=== PATIENT | male | born 1995 | race Two or more races ===

== ENCOUNTER 2019-12-24 19:28 | Emergency (ER) | payer MEDICAID ==
[~2019-12-24] VITALS: Ht 180.3 cm; Wt 115.7 kg
[2019-12-24 19:50] VITALS: BP 132/81
--- NOTE | 2019-12-24 19:50 | NUR ---
ED Nurse Note: Patient walked into ED for c/o severe sore throat and R ear ache since last night. Patient also has fever upon ED triage. He notes muscle aches. Patient is aaox4, breathing is normal and unlabored. NAD.
[2019-12-24] MEDS ORDERED: Acetaminophen 500mg (ES) tab ORAL ONE (20:30)
[2019-12-24] MEDS ORDERED: Augmentin 875mg Tab ORAL ONE (20:30)
[2019-12-24] MEDS ORDERED: AUGMENTIN 875-1 EAC1 ORAL (20:38)
[2019-12-24] MEDS ORDERED: IBUPROFEN600 M1 ORAL (20:38)
[2019-12-24 20:50] VITALS: BP 128/90
--- NOTE | 2019-12-24 20:50 | NUR ---
ER DISCHARGE NOTE: Patient is cleared to be discharged per ERMD, pt is aox4, on room air, with stable vital signs. pt was given dc and prescription instructions, pt was able to verbalize understanding, pt id band removed. pt is able to ambulate with steady gait. pt took all belongings.
--- NOTE | 2019-12-24 23:00 | Emergency Room Report ---
History of Present Illness General Chief Complaint: Sore Throat Source: Patient Present Illness Allergies: Coded Allergies: No Known Allergies (Unverified , 12/24/19) COVID-19 Screening Contact w/high risk pt: No Experienced COVID-19 symptoms?: Yes COVID-19 Testing performed ASIAN STUDIES PROGRAM CHAIR: No Nursing Documentation-[facility] Past Medical History: No Stated History Physical Exam Vital Signs Date Time Temp Pulse Resp B/P (MAP) Pulse Ox O2 Delivery O2 Flow Rate FiO2 12/24/19 19:37 100.9 118 18 132/81 (98) 93 Room Air Medical Decision Making Diagnostic Impression: Primary Impression: Pharyngitis Last Vital Signs Date Time Temp Pulse Resp B/P (MAP) Pulse Ox O2 Delivery O2 Flow Rate FiO2 12/24/19 20:50 99.6 12/24/19 20:50 98 18 128/90 99 Room Air Disposition: HOME, SELF-CARE Condition: Stable Scripts Ibuprofen* (MOTRIN*) 600 Mg Tablet 600 MG ORAL Q8H PRN for FOR PAIN, #30 TAB 0 Refills Prov: Deniz Morel MD 12/24/19 Amoxicillin/Potassium Clav 875-125* (AUGMENTIN 875-125 TABLET*) 1 Each Tablet 1 TAB ORAL TWICE A DAY, #14 TAB Prov: Deniz Morel MD 12/24/19 Referrals: [facility] Patient Instructions: Pharyngitis, [id number] Deniz Morel MD Dec 24, 2019 23:00
== END 2019-12-24 23:10 | disposition home or self-care (01) ==
LOC: EMR 20:14
DX: J02.9 Acute pharyngitis, unspecified (principal)
CPT/HCPCS: 96372; J1100; Z7502; 99283

== ENCOUNTER 2020-06-03 23:06 | Emergency (ER) | payer MEDICAID ==
[~2020-06-03] VITALS: Ht 172.7 cm; Wt 113.4 kg
[~2020-06-03 23:06] MED LIST: AUGMENTIN 875-1 EAC1 ORAL; IBUPROFEN600 M1 ORAL
--- NOTE | 2020-06-03 23:30 | NUR ---
ED Nurse Note: Patient walked into the ED with c/o shoulder pain after a box fell on pts left shoulder. Pt denies LOC. ERMD at bedside. Pt is AAOX4 and ambulatory
[2020-06-03] MEDS ORDERED: Ketorolac 30mg Inj IM ONE (23:45)
[2020-06-03 23:48] VITALS: BP 120/73
--- NOTE | 2020-06-03 23:51 | Emergency Room Report ---
History of Present Illness General Chief Complaint: Shoulder Injury Source: Patient Present Illness HPI Patient is a 24 yo M, denies any significant PMHx who presents to ED co L shoulder pain. Patient states that he dropped a storage box onto his left shoulder at approximately 4:30 PM today. He states that his hand initially felt numb but now feels normal. He complains of pain to his posterior left shoulder. He states he has normal range of motion. He denies any head trauma or any other trauma. He denies any chest pain or shortness of breath. Allergies: Coded Allergies: No Known Allergies (Unverified , 12/24/19) COVID-19 Screening Contact w/high risk pt: No Experienced COVID-19 symptoms?: No COVID-19 Testing performed ACCESS DATABASE DEVELOPER: No Patient History Reviewed Nursing Documentation: PMH: Agreed; PSxH: Agreed Nursing Documentation-PMH Past Medical History: No Stated History Review of Systems All Other Systems: negative except mentioned in HPI Physical Exam Vital Signs Date Time Temp Pulse Resp B/P (MAP) Pulse Ox O2 Delivery O2 Flow Rate FiO2 06/03/20 23:24 97.3 73 20 120/73 (89) 98 Room Air Sp02 EP Interpretation: reviewed, normal General Appearance: no apparent distress, alert, GCS 15, non-toxic Head: normocephalic, atraumatic Eyes: bilateral eye normal inspection, bilateral eye PERRL ENT: hearing grossly normal, normal pharynx, no angioedema, normal voice Neck: full range of motion, supple/symm/no masses Respiratory: chest non-tender, lungs clear, normal breath sounds, no respiratory distress, no accessory muscle use Cardiovascular #1: regular rate, rhythm Gastrointestinal: overweight Rectal: deferred Musculoskeletal: other - Left mid upper trapezius hematoma with superficial abrasions mild tenderness to palpation left shoulder normal range of motion, normal strength and sensation intact Neurologic: motor strength/tone normal, wall taper helper III-XII nml as tested, distal neuro normal, oriented x3, sensory intact Psychiatric: no suicidal/homicidal ideation Skin: no rash Lymphatic: no adenopathy Medical Decision Making Diagnostic Impression: Primary Impression: Shoulder injury Additional Impression: Hematoma ER Course Patient had normal range of motion. Neuro intact. Patient's x-ray demonstrates no acute fractures. Patient given a copy of his x-ray results. Patient given intramuscular Toradol for pain relief. He states his pain is improved. After discussing risks and benefits of further diagnostics, treatment plans, as well as indications for and risks of admission, the patient is agreeable to being discharged home. I have explained that their evaluation and treatment in the emergency department today is an important step towards them achieving better health but that their evaluation today is not intended to replace further evaluation and treatment by a physician in their local clinic. I have explained that while the current findings suggest no immediate life threatening emergency they will require further evaluation and treatment by a physician of their choice in their area. They understand that it will be necessary for them to review the final reports of their ED visit with their clinic physician. We have reviewed indications for return to the Emergency Department. I have explained that additional time may need to pass and/or additional testing as an outpatient may be necessary before a definitive diagnosis can be made. They tell me they are willing to follow up as instructed within the timeframe I recommend. They appear to understand what we discussed. Additionally they understand that if they are unable to be seen by an outpatient physician they are welcome, and in fact should, return to the Emergency Department for a repeat evaluation. The patient is stable at time of discharge. Other X-Ray Diagnostic Results Other X-Ray Diagnostic Results : X-Ray ordered: L shoulder # of Views/Limited Vs Complete: 3 View Indication: Pain EP Interpretation: Yes Interpretation: no dislocation, no soft tissue swelling, no fractures Impression: No acute disease Electronically Signed by: Jane Melendez MD Last Vital Signs Date Time Temp Pulse Resp B/P (MAP) Pulse Ox O2 Delivery O2 Flow Rate FiO2 06/03/20 23:24 97.3 73 20 120/73 (89) 98 Room Air Disposition: HOME, SELF-CARE Condition: Stable Scripts Naproxen* (NAPROXEN*) 500 Mg Tablet 500 MG ORAL TWICE A DAY for 7 Days, TAB Prov: Jane Melendez M.D. 06/04/20 Referrals: NOT CHOSEN [facility]/,REFERRING (PCP) Additional Instructions: The patient was provided with discharge instructions, notified to follow-up with a primary care doctor and or specialist in the next 24-48 hours, and to return to the ED if they have worsening of their symptoms. Please note that this report is being documented using Flipps technology. This can lead to erroneous entry secondary to incorrect interpretation by the dictating instrument. Jane Melendez M.D. Jun 03, 2020 23:51
[2020-06-04] MEDS ORDERED: NAPROXEN500 M2 ORAL
[2020-06-04 00:10] VITALS: BP 120/73
--- NOTE | 2020-06-04 14:02 | Diagnostic Imaging Report ---
Indication: Left shoulder pain Technique: 3 views of the left shoulder Comparison: none Findings: No acute fracture. No dislocation. The joint spaces are preserved. Impression: Negative
== END 2020-06-04 00:10 | disposition home or self-care (01) ==
LOC: EMR 23:20
DX: S40.012A Contusion of left shoulder, initial encounter (principal); W22.8XXA Striking against or struck by other objects, initial encounter; Y93.89 Activity, other specified; Y92.9 Unspecified place or not applicable
CPT/HCPCS: 73020; 96372; J1885; Z7502; 99283

== ENCOUNTER 2020-06-10 14:37 | Inpatient (IN) | payer MEDICAID ==
[~2020-06-10] VITALS: Ht 177.8 cm; Wt 119.3 kg
[~2020-06-10 14:37] MED LIST changes: +NAPROXEN500 M2 ORAL
[2020-06-10] MEDS ORDERED: Ketorolac 30mg Inj IV ONE (15:30)
[2020-06-10 15:47] LABS: HEMOGLOBIN 16.6 G/DL (14.2-18.0); MEAN CORPUSCULAR VOLUME 86 FL (80-99); PLATELET COUNT 358 K/UL (150-450); RED BLOOD COUNT 6.42 M/UL (4.70-6.10)
[2020-06-10 15:50] LABS: WHITE BLOOD COUNT 22.9 K/UL (4.8-10.8)
[2020-06-10 15:55] LABS: ALANINE AMINOTRANSFERASE 108 U/L (12-78); ALBUMIN 4.7 G/DL (3.4-5.0); ALBUMIN/GLOBULIN RATIO 1.2 (1.0-2.7); ALKALINE PHOSPHATASE 82 U/L (46-116); ANION GAP 10 mmol/L (5-15); ASPARTATE AMINO TRANSFERASE 56 U/L (15-37); BILIRUBIN,TOTAL 1.4 MG/DL (0.2-1.0); BLOOD UREA NITROGEN 15 mg/dL (7-18); CALCIUM 9.8 MG/DL (8.5-10.1); CARBON DIOXIDE 27 MMOL/L (21-32); CHLORIDE 104 MMOL/L (98-107); CREATININE 0.9 MG/DL (0.55-1.30); POTASSIUM 4.6 MMOL/L (3.5-5.1); SODIUM 141 MMOL/L (136-145)
[2020-06-10 15:59] LABS: BILIRUBIN,DIRECT 0.2 MG/DL (0.0-0.3)
[2020-06-10] MEDS ORDERED: Piperacillin/Tazobactam 3.375 GM in NS 110 ML IVPB ONE (16:00)
--- NOTE | 2020-06-10 16:15 | Emergency Room Report ---
History of Present Illness General Chief Complaint: Abdominal Pain Source: Patient Present Illness HPI 24-year-old male with no significant past medical history other than gastritis here complaining of sudden onset left upper quadrant abdominal pain with flatulence and constipation that started earlier this morning. Patient had a bowel movement prior to coming to ED however reported that it was really hard f or him to defecate. Denies any blood in stool. Patient reports that he forced himself to vomit a couple times. Has been feeling nauseated. Denies any blood in vomit. Denies fever and chills, cough or congestion, all other URI symptoms. Denies urinary symptoms. Reports that he smokes marijuana daily basis. Denies any alcohol intake or tobacco smoke. Denies other drug use. Denies any abdominal surgical history. Reports that he had a lot of greasy food last night. Has not taken medication for symptom relief. Pain is worse when sitting and laying down and feels better when in the position. Denies any heavy lifting. Allergies: Coded Allergies: No Known Allergies (Unverified , 12/24/19) COVID-19 Screening Contact w/high risk pt: No Experienced COVID-19 symptoms?: No COVID-19 Testing performed DATA REPORT ANALYST: Yes COVID-19 Screening: Negative COVID-19 COVID-19 Testing Source: clinic Patient History Past Medical History: see triage record Past Surgical History: none Pertinent Family History: none Immunizations: UTD Reviewed Nursing Documentation: PMH: Agreed; PSxH: Agreed Nursing Documentation-PMH Past Medical History: No Stated History Review of Systems All Other Systems: negative except mentioned in HPI Physical Exam Vital Signs Date Time Temp Pulse Resp B/P (MAP) Pulse Ox O2 Delivery O2 Flow Rate FiO2 06/10/20 15:00 98.2 77 20 133/80 (97) 97 Room Air Sp02 EP Interpretation: reviewed, normal General Appearance: alert, mild distress Head: normocephalic, atraumatic Eyes: bilateral eye normal inspection, bilateral eye PERRL ENT: normal pharynx Neck: supple Respiratory: no respiratory distress, no retraction, no accessory muscle use Cardiovascular #1: regular rate, rhythm, no edema, no gallop, no murmur Gastrointestinal: no organomegaly, no peritonitis, no bruit, no guarding, no hernia, no pulsatile mass, no rebound, other - Negative McBurney's, negative Reed's, negative Rovsing's Rectal: deferred Genitourinary: no CVA tenderness Musculoskeletal: back normal Neurologic: alert, motor strength/tone normal, oriented x3, sensory intact, responsive, speech normal Psychiatric: judgement/insight normal, memory normal, mood/affect normal, no suicidal/homicidal ideation Skin: no rash Lymphatic: no adenopathy Medical Decision Making PA Attestation All my diagnosis and treatment plans were reviewed ad discussed with my supervising physician Dr. Wagoner Diagnostic Impression: Primary Impression: Elevated white blood cell count Additional Impressions: Abdominal pain Appendicitis ER Course 24-year-old male with no significant past medical history other than gastritis here complaining of sudden onset left upper quadrant abdominal pain with flatulence and constipation that started earlier this morning. Patient had a bowel movement prior to coming to ED however reported that it was really hard for him to defecate. Denies any blood in stool. Patient reports that he forced himself to vomit a couple times. Has been feeling nauseated. Denies any blood in vomit. Denies fever and chills, cough or congestion, all other URI symptoms. Denies urinary symptoms. Reports that he smokes marijuana daily basis. Denies any alcohol intake or tobacco smoke. Denies other drug use. Denies any abdominal surgical history. Reports that he had a lot of greasy food last night. Has not taken medication for symptom relief. Pain is worse when sitting and laying down and feels better when in the position. Denies any heavy lifting. Ddx considered but are not limited to: appendicitis, cholecystis, gastritis, gastroenteritis, UTI, pyelonephritis, SBO, diverticulitis, pancreatitis, infl uenza with GI manifestation, HI, Vital signs: are WNL, pt. is afebrile H&PE are most consistent with: Elevated white blood cells, abdominal pain, possible early appendicitis ORDERS: abdominal CT, abdominal pain set, sepsis work-up ED INTERVENTIONS: NS bolus, Zosyn, Pepcid, Zofran, Toradol Patient was admitted with diagnosis of abdominal pain, elevated white count to Dr. Flood under supervision of : Ciaran Zafar was also consulted on this case due to the radiologist finding of early appendicitis pt stable at time of admission CT/MRI/US Diagnostic Results CT/MRI/US Diagnostic Results : Imaging Test Ordered: CT abdomen pelvis with contrast Impression CT dose: Total DLP 821.2 mGycm; CTDI vol 14.3 mGy Comparison: None Findings: Mild dependent atelectasis noted in the lung bases. No pleural effusion or pneumothorax is seen. Partially imaged heart is normal in size. Hepatic contour is smooth. No focal hepatic mass lesion noted on the single phase exam. Hepatic veins and portal veins are patent. There are no CT evident gallstones or pericholecystic inflammatory changes. No biliary ductal dilatation. Spleen, adrenal glands and pancreas unremarkable. No discrete peripancreatic inflammatory changes or fluid collections. Pancreatic enhancement is uniform. Kidneys enhance symmetrically. No urinary tract stone, hydronephrosis or perinephric stranding. Bladder is unremarkable for degree of underdistention. Prostate is not enlarged. There is no free intraperitoneal air or fluid. There is no evidence of small bowel obstruction. The appendix measures 9-10 mm in diameter. Some air is noted within the lumen of the appendix. Questionable subtle early inflammatory changes noted adjacent to the base of the appendix. There is some prominent periappendiceal lymph nodes. Abdominal aorta is normal in caliber. No acute osseous abnormality. IMPRESSION: Appendiceal and periappendiceal that are equivocal for possible early appendicitis. Please correlate clinically. Last Vital Signs Date Time Temp Pulse Resp B/P (MAP) Pulse Ox O2 Delivery O2 Flow Rate FiO2 06/10/20 15:00 98.2 77 20 133/80 (97) 97 Room Air Disposition: ADMITTED INPATIENT Condition: Serious Referrals: [facility],REFERRING (PCP) Divya Carver Jun 10, 2020 16:15
[2020-06-10 16:38] LABS: APPEARANCE,URINE CLEAR; BILIRUBIN, URINE NEGATIVE (NEGATIVE); COLOR,URINE PALE YELLOW; GLUCOSE, URINE (UA) NEGATIVE (NEGATIVE); KETONES,URINE NEGATIVE (NEGATIVE); LEUKOCYTE ESTERASE ,URINE NEGATIVE (NEGATIVE); NITRITE,URINE NEGATIVE (NEGATIVE); PH,URINE 6.5 (4.5-8.0); PROTEIN,URINE NEGATIVE (NEGATIVE); UROBILINOGEN,URINE NORMAL MG/DL (0.0-1.0)
--- NOTE | 2020-06-10 17:28 | Diagnostic Imaging Report ---
Indication: Abnormal pain Technique: CT of the abdomen and pelvis utilizing automated exposure control with intravenous contrast. Venous scanning performed. Axial, sagittal and coronal reformats presented. CT dose: Total DLP 821.2 mGycm; CTDI vol 14.3 mGy Comparison: None Findings: Mild dependent atelectasis noted in the lung bases. No pleural effusion or pneumothorax is seen. Partially imaged heart is normal in size. Hepatic contour is smooth. No focal hepatic mass lesion noted on the single phase exam. Hepatic veins and portal veins are patent. There are no CT evident gallstones or pericholecystic inflammatory changes. No biliary ductal dilatation. Spleen, adrenal glands and pancreas unremarkable. No discrete peripancreatic inflammatory changes or fluid collections. Pancreatic enhancement is uniform. Kidneys enhance symmetrically. No urinary tract stone, hydronephrosis or perinephric stranding. Bladder is unremarkable for degree of underdistention. Prostate is not enlarged. There is no free intraperitoneal air or fluid. There is no evidence of small bowel obstruction. The appendix measures 9-10 mm in diameter. Some air is noted within the lumen of the appendix. Questionable subtle early inflammatory changes noted adjacent to the base of the appendix. There is some prominent periappendiceal lymph nodes. Abdominal aorta is normal in caliber. No acute osseous abnormality. IMPRESSION: Appendiceal and periappendiceal that are equivocal for possible early appendicitis. Please correlate clinically. The CT scanner at [facility] is accredited by the [employer] and the scans are performed using protocols designed to limit radiation exposure to as low as reasonably achievable to attain images of sufficient resolution adequate for diagnostic evaluation.
[2020-06-10 21:35] VITALS: BP 140/82
[2020-06-10] MEDS ORDERED: Morphine Sulfate 4mg/ml Inj (IV USE ONLY) IVP ONE (21:45)
--- NOTE | 2020-06-10 22:10 | NUR ---
NURSE NOTES: Patient arrived on unit A&Ox4, ambulatory with a steady gait. Pt was oriented to room and acknowledged that he would call for nurse if he has any needs. Call light within reach, side rails up x2, bed locked and in lowest position. Awaiting for admission orders. Addendum: 06/10/20 at 2221 by Gabe Lynn RN Vital signs: Temp: 98.0 HR:73 RR:18 O2:97 BP: 140/89
[2020-06-11] VITALS (13 sets, daily range): BP systolic 115–140; BP diastolic 56–89
--- NOTE | 2020-06-11 00:10 | NUR ---
NURSE NOTES: Received admission orders, entered and carried out.
[2020-06-11] MEDS ORDERED: Morphine Sulfate 4mg/ml Inj (IV USE ONLY) IVP PRN (00:15)
[2020-06-11] MEDS: D5NS 1,000 ML IV SCH ×2 (00:37→10:15)
[2020-06-11] MEDS: Morphine Sulfate 2mg/ml Inj(IV/IM USE ONLY) IVP PRN ×2 (06:28→11:15)
--- NOTE | 2020-06-11 07:10 | NUR ---
NURSE HAND-OFF: Important Events on Shift: Admitted from ER, admission orders carried out, abd pain in control Patient Status: sleeping Diet: NPO Pending Orders: Pending Results/Labs: Pending MD notification: Latest Vital Signs: Temperature 98.4 , Pulse 75 , B/P 123 /83 , Respiratory Rate 18 , O2 SAT 97 , Room Air, O2 Flow Rate . Vital Sign Comment: VSS Latest [place] Fall Score: 20 Fall Risk: Low Risk Safety Measures: Call light Within Reach, Bed Alarm , Side Rails Side Rails x2, Bed position Low and Locked. Fall Precautions: Patient Fall Education Report given to RODRIGUEZ Lees.
--- NOTE | 2020-06-11 08:01 | NUR ---
NURSE NOTES: Patient awake and alert and oriented.IV fluids infusing as ordered.Patient NPO as ordered.Call light within reach.
[2020-06-11 08:49] LABS: BASOPHILS % (AUTO) 0.7 % (0.0-2.0); EOSINOPHILS % (AUTO) 1.4 % (0.0-3.0); HEMATOCRIT 46.2 % (42.0-52.0); LYMPHOCYTES % (AUTO) 28.3 % (20.0-45.0); MEAN CORPUSCULAR VOLUME 85 FL (80-99); MONOCYTES % (AUTO) 5.9 % (1.0-10.0); NEUTROPHILS % (AUTO) 63.6 % (45.0-75.0); PLATELET COUNT 298 K/UL (150-450); RED BLOOD COUNT 5.43 M/UL (4.70-6.10); RED CELL DISTRIBUTION WIDTH 12.7 % (11.6-14.8); WHITE BLOOD COUNT 13.4 K/UL (4.8-10.8)
[2020-06-11] MEDS: Piperacillin/Tazobactam 3.375 GM in NS 110 ML IVPB SCH ×3 (09:33→21:57)
--- NOTE | 2020-06-11 09:59 | History and Physical Report ---
DATE OF ADMISSION: 06/10/2020 REASON FOR ADMISSION: Abdominal pain. HISTORY OF PRESENT ILLNESS: A 24-year-old male with no past medical history, complains of sudden onset of left upper quadrant abdominal pain. The patient with positive bowel movements. No hematochezia. No hematemesis. The patient was seen and evaluated in the emergency room. The patient underwent a scan of the abdomen, which showed possible early appendicitis. The patient is now being admitted for possibly the above. The patient otherwise is medically stable. PAST MEDICAL HISTORY: Negative. MEDICATIONS: Negative. SOCIAL HISTORY: Otherwise reviewed. PHYSICAL EXAMINATION: GENERAL: A well-developed male, in no significant distress. VITAL SIGNS: Stable. LUNGS: Clear and symmetric. CARDIAC: S1, S2. Regular rate and rhythm. ABDOMEN: Soft, but noted tenderness in the right lower and upper quadrant. EXTREMITIES: No cyanosis or clubbing. No edema. LABORATORY DATA: Reviewed. White count elevated at 22.9, hematocrit 55. Chemistries otherwise normal with the exception of liver enzymes which were slightly elevated. IMPRESSION: Possible appendicitis by imaging, elevated liver enzymes, leukocytosis, possible sepsis. RECOMMENDATION: 1. NPO. 2. Pain control. 3. Maintain IV Zosyn. 4. Surgical evaluation to follow and ID if needed. 5. We will reassess for further changes and recheck labs in the a.m. Redd Ledezma M.D. DR: RODERICK JOB#: [id number] CC:
--- NOTE | 2020-06-11 12:10 | Pre-Procedure Note/Attestation ---
Pre-Procedure Note/Attestation Complete Prior to Procedure Procedure Narrative: Laparoscopic appendectomy Indications for Procedure Pre-Operative Diagnosis: Abdominal pain acute appendicitis Attestation I attest that I discussed the nature of the procedure; its benefits; risks and complications; and alternatives (and the risks and benefits of such alternatives), prior to the procedure, with the patient (or the patient's legal renewals representative). I attest that, if there was a reasonable possibility of needing a blood transfusion, the patient (or the patient's legal renewals representative) was given the [facility] standardized written summary, pursuant to the [place] Van[place] Blood Safety Act ([place] Health and Safety Code # 1645, as amended). I attest that I re-evaluated the patient just prior to the surgery and that there has been no change in the patient's H&P, except as documented below: Diallo Zafar Jun 11, 2020 12:10
--- NOTE | 2020-06-11 12:10 | Consultation ---
History of Present Illness General Date patient seen: Jun 11, 2020 Reason for Hospitalization: Abdominal Pain Present Illness HPI This is a very pleasant 24-year-old otherwise healthy male that presented to the emergency department [facility] complaining of abdominal pain. Patient states that he was doing well and began to develop some left-sided abdominal pain thought he was constipated went to the bathroom but persistently continued to have the pain. As the day went about pain persistent if not worsening and came to emergency room for evaluation at which time identified to have leukocytosis complain of left-sided abdominal pain and a CT equivocal for appendicitis. Surgery called to evaluate assist with care patient admitted chart reviewed patient examined. patient states he has intermittent nausea had one episode of emesis yesterday. States that the pain is still present and only improved after given narcotic pain medication. Cramping pain 8 out of 10 at max currently 4 out of 10 after recent pain medication Allergies: Coded Allergies: No Known Allergies (Unverified , 12/24/19) COVID-19 Screening Contact w/high risk pt: No Experienced COVID-19 symptoms?: No Medication History Scheduled Amoxicillin/Potassium Clav 875-125* (Augmentin 875-125 Tablet*), 1 TAB ORAL TWICE A DAY Naproxen* (Naproxen*), 500 MG ORAL TWICE A DAY Scheduled PRN Ibuprofen* (Motrin*), 600 MG ORAL Q8H PRN for FOR PAIN Patient History History Provided By: Patient, Medical Record, PMD Healthcare decision maker N Resuscitation status Advanced Directive on File Past Medical/Surgical History Past Medical/Surgical History: (1) Pharyngitis (2) Shoulder injury (3) Hematoma (4) Appendicitis (5) Abdominal pain (6) Elevated white blood cell count Review of Systems Review of Symptoms General ROS: no weight loss or fever Psychological ROS: no depression or mood changes, no memory loss Ophthalmic ROS: no visual changes or eye irritation ENT ROS: no nasal congestion, hearing loss, dizziness Allergy and Immunology ROS: no allergic symptoms or urticaria Hematological and Lymphatic ROS: no swollen glands, unusual bleeding or bruising Endocrine ROS: no polyuria, polydipsia, weight changes, temperature intolerance Respiratory ROS: no cough, shortness of breath, or wheezing Cardiovascular ROS: no chest pain or dyspnea on exertion Gastrointestinal ROS: + abdominal pain, bright red blood in stool. Musculoskeletal ROS: no myalgias or arthralgias Neurological ROS: no TIA or stroke symptoms Dermatological ROS: no new or changing skin lesions, rashes or pruritis Physical Exam Physical Exam General appearance: alert, cooperative, no distress, appears stated age Head: Normocephalic, without obvious abnormality, atraumatic Eyes: conjunctivae/corneas clear. PERRL, EOM's intact. Fundi benign Throat: Lips, mucosa, and tongue normal. Teeth and gums normal Neck: supple, symmetrical, trachea midline, no adenopathy, thyroid: not enlarged, symmetric, no tenderness/mass/nodules, no carotid bruit and no JVD Lungs: clear to auscultation bilaterally Heart: regular rate and rhythm, S1, S2 normal, no murmur, click, rub or gallop Abdomen: soft, generalized discomfort but right lower quadrant-tender with rebound and guarding. Bowel sounds normal. No masses, no organomegaly Extremities: extremities normal, atraumatic, no cyanosis or edema Pulses: 2+ and symmetric Skin: Skin color, texture, turgor normal. No rashes or lesions Neurologic: Grossly normal Last 24 Hour Vital Signs Date Time Temp Pulse Resp B/P (MAP) Pulse Ox O2 Delivery O2 Flow Rate FiO2 06/11/20 09:00 Room Air 06/11/20 08:00 97.7 71 20 131/76 (94) 96 06/11/20 04:00 98.4 75 18 123/83 (96) 97 06/11/20 00:00 98.0 73 18 140/89 (106) 97 06/10/20 22:54 Room Air 06/10/20 21:44 98.2 18 140/82 97 Room Air 06/10/20 21:35 18 140/82 Room Air 06/10/20 19:13 Room Air 06/10/20 15:00 98.2 77 20 133/80 (97) 97 Room Air Intake and Output 06/10/20 06/11/20 19:00 07:00 # Voids 4 # Bowel Movements 1 Laboratory Tests Test 06/10/20 15:16 06/10/20 16:25 06/11/20 08:30 White Blood Count 22.9 K/UL (4.8-10.8) *H 13.4 K/UL (4.8-10.8) H Red Blood Count 6.42 M/UL (4.70-6.10) H 5.43 M/UL (4.70-6.10) Hemoglobin 16.6 G/DL (14.2-18.0) 16.0 G/DL (14.2-18.0) Hematocrit 55.0 % (42.0-52.0) H 46.2 % (42.0-52.0) Mean Corpuscular Volume 86 FL (80-99) 85 FL (80-99) Mean Corpuscular Hemoglobin 25.8 PG (27.0-31.0) L 29.4 PG (27.0-31.0) Mean Corpuscular Hemoglobin Concent 30.1 G/DL (32.0-36.0) L 34.5 G/DL (32.0-36.0) Red Cell Distribution Width 14.0 % (11.6-14.8) 12.7 % (11.6-14.8) Platelet Count 358 K/UL (150-450) 298 K/UL (150-450) Mean Platelet Volume 8.5 FL (6.5-10.1) 8.0 FL (6.5-10.1) Neutrophils (%) (Auto) % (45.0-75.0) 63.6 % (45.0-75.0) Lymphocytes (%) (Auto) % (20.0-45.0) 28.3 % (20.0-45.0) Monocytes (%) (Auto) % (1.0-10.0) 5.9 % (1.0-10.0) Eosinophils (%) (Auto) % (0.0-3.0) 1.4 % (0.0-3.0) Basophils (%) (Auto) % (0.0-2.0) 0.7 % (0.0-2.0) Differential Total Cells Counted 100 Neutrophils % (Manual) 91 % (45-75) H Lymphocytes % (Manual) 6 % (20-45) L Monocytes % (Manual) 3 % (1-10) Eosinophils % (Manual) 0 % (0-3) Basophils % (Manual) 0 % (0-2) Band Neutrophils 0 % (0-8) Platelet Estimate Adequate Platelet Morphology Normal Red Blood Cell Morphology Normal Sodium Level 141 MMOL/L (136-145) Potassium Level 4.6 MMOL/L (3.5-5.1) Chloride Level 104 MMOL/L (98-107) Carbon Dioxide Level 27 MMOL/L (21-32) Anion Gap 10 mmol/L (5-15) Blood Urea Nitrogen 15 mg/dL (7-18) Creatinine 0.9 MG/DL (0.55-1.30) Estimat Glomerular Filtration Rate > 60 mL/min (>60) Glucose Level 125 MG/DL (74-106) H Calcium Level 9.8 MG/DL (8.5-10.1) Total Bilirubin 1.4 MG/DL (0.2-1.0) H Direct Bilirubin 0.2 MG/DL (0.0-0.3) Aspartate Amino Transf (AST/SGOT) 56 U/L (15-37) H Alanine Aminotransferase (ALT/SGPT) 108 U/L (12-78) H Alkaline Phosphatase 82 U/L (46-116) Total Protein 8.5 G/DL (6.4-8.2) H Albumin 4.7 G/DL (3.4-5.0) Globulin 3.8 g/dL Albumin/Globulin Ratio 1.2 (1.0-2.7) Lipase 97 U/L (73-393) Urine Color Pale yellow Urine Appearance Clear Urine pH 6.5 (4.5-8.0) Urine Specific Howard 1.010 (1.005-1.035) Urine Protein Negative (NEGATIVE) Urine Glucose (UA) Negative (NEGATIVE) Urine Ketones Negative (NEGATIVE) Urine Blood Negative (NEGATIVE) Urine Nitrite Negative (NEGATIVE) Urine Bilirubin Negative (NEGATIVE) Urine Urobilinogen Normal MG/DL (0.0-1.0) Urine Leukocyte Esterase Negative (NEGATIVE) Urine Opiates Screen Negative (NEGATIVE) Urine Barbiturates Screen Negative (NEGATIVE) Phencyclidine (PCP) Screen Negative (NEGATIVE) Urine Amphetamines Screen Negative (NEGATIVE) Urine Benzodiazepines Screen Negative (NEGATIVE) Urine Cocaine Screen Negative (NEGATIVE) Urine Marijuana (THC) Screen Negative (NEGATIVE) Microbiology Date/Time Source Procedure Growth Status 06/10/20 17:40 Nasopharynx SARS-CoV-2 Antigen (Rapid)(HA) - Final Complete Height (Feet): 5 Height (Inches): 10.00 Weight (Pounds): 263 Medications Current Medications Medications (Trade) Dose Ordered Sig/Ambrocio Route PRN Reason Start Time Stop Time Status Last Admin Dose Admin Dextrose/Sodium Chloride 1,000 ml @ 100 mls/hr Q10H IV 06/11/20 00:15 07/11/20 00:14 06/11/20 00:37 Morphine Sulfate (Morphine Sulfate) 2 mg Q3HR PRN IVP For Pain 06/11/20 00:15 06/18/20 00:14 06/11/20 11:15 Morphine Sulfate (Morphine Sulfate) 4 mg Q3HR PRN IVP For Pain 06/11/20 00:15 06/18/20 00:14 Ondansetron HCl (Zofran) 4 mg Q6H PRN IVP Nausea & Vomiting 06/11/20 00:15 07/11/20 00:14 Piperacillin Sod/ Tazobactam Sod 3.375 gm/Sodium Chloride 110 ml @ 27.5 mls/hr EVERY 8 HOURS IVPB 06/11/20 09:30 06/16/20 09:29 06/11/20 09:33 Assessment/Plan Problem List: (1) Appendicitis Assessment & Plan: This is a 24-year-old male with likely acute appendicitis. Though patient's clinical presentation history questionable appendicitis or with atypical presentation on examination he does have focal tenderness in the right lower quadrant only discomfort in the remainder the abdomen. He has rebound and guarding the right lower quadrant. He is more peritonitis gone to the right lower quadrant is when he is I stand up and jump he points directly the right lower quadrant is where the pain radiates from. CT reviewed dilated appendix noted notes severe inflammation agree with likely equivocal but given clinical examination though history is not consistent likely atypical presentation of acute appendicitis. I do long discussion with the patient at the bedside. I explained to him the possibility of a negative laparoscopy, laparoscopic appendectomy, medical treatment with repeat abdominal examinations and antibiotics. After explained the risk benefits and alternatives patient expressed that he would be more comfortable with proceeding with diagnostic laparoscopy and appendectomy and more of a definitive answer as to the etiology of his pain. Consent obtained. Plan for OR today. ICD Codes: K37 - Unspecified appendicitis SNOMED: 15125766, 527445228 (2) Shoulder injury ICD Codes: S49.90XA - Unspecified injury of shoulder and upper arm, unspecified arm, initial encounter SNOMED: 973378003 (3) Abdominal pain ICD Codes: R10.9 - Unspecified abdominal pain SNOMED: 10823493, 630749320 (4) Pharyngitis ICD Codes: J02.9 - Acute pharyngitis, unspecified SNOMED: 504390239 (5) Hematoma ICD Codes: T14.8XXA - Other injury of unspecified body region, initial encounter SNOMED: 241631935 (6) Elevated white blood cell count ICD Codes: D72.829 - Elevated white blood cell count, unspecified SNOMED: 398008999, 438486987 Diallo Zafar Jun 11, 2020 12:10
[2020-06-11] MEDS ORDERED: Rocuronium Bromide 50mg/5ml Inj IV ONE (12:14)
[2020-06-11] MEDS ORDERED: Succinylcholine 20mg/ml 10ml vial ONE (12:15)
[2020-06-11] MEDS ORDERED: fentaNYL 100 mcg/2 mL IV ONE (12:21)
[2020-06-11] MEDS ORDERED: Midazolam 2mg/2ml Inj ONE (12:21)
[2020-06-11] MEDS ORDERED: Lidocaine 1% MPF 10mg/ml 5ml ONE (12:21)
[2020-06-11] MEDS ORDERED: Bupivacaine w/Epi 0.25% 50ml vial INJ ONE (12:27)
[2020-06-11] MEDS ORDERED: Bacitracin 50000 Units Vial ONE (12:27)
[2020-06-11] MEDS ORDERED: NeoSporin Gu Irrig 1ml Amp IRRIG ONE (12:27)
--- NOTE | 2020-06-11 12:40 | NUR ---
NURSE NOTES: Patient to OR for surgery.Consent was signed.
--- NOTE | 2020-06-11 12:40 | Anethesia Preoperative Eval ---
Anesthesia Pre-op PMH/ROS General Date of Evaluation: Jun 11, 2020 Time of Evaluation: 12:37 Anesthesiologist: Brandi ASA Score: ASA 2 Mallampati Score Class I : Soft palate, uvula, fauces, pillars visible Class II: Soft palate, uvula, fauces visible Class III: Soft palate, base of uvula visible Class IV: Only hard plate visible Mallampati Classification: Class II Surgeon: Jesse Diagnosis: Acute appendicitis Surgical Procedure: Appendectomy Anesthesia History: none Family History: no anesthesia problems Allergies: Coded Allergies: No Known Allergies (Unverified , 12/24/19) Medications: see eMAR Patient NPO?: Yes Past Medical History Cardiovascular: Denies: HTN, CAD, SD, valve dz, arrhythmia, other Pulmonary: Denies: asthma, COPD, JASWIND[place], other Gastrointestinal/Genitourinary: Reports: GERD; Denies: CRI, ESRD, other Neurologic/Psychiatric: Denies: dementia, CVA, depression/anxiety, TIA, other Endocrine: Denies: DM, hypothyroidism, steroids, other HEENT: Denies: cataract (L), cataract (R), glaucoma, [place] (L), [place] (R), other Hematology/Immune: Denies: anemia, DVT, bleeding disorder, other Musculoskeletal/Integumentary: Denies: OA, RA, DJD, DDD, edema, other Other: obesity PMH Narrative: as above admitted for acute onset abdominal pain PSxH Narrative: none Anesthesia Pre-op Phys. Exam Physician Exam Last Vital Signs Date Time Temp Pulse Resp B/P (MAP) Pulse Ox O2 Delivery O2 Flow Rate FiO2 06/11/20 09:00 Room Air 06/11/20 08:00 97.7 71 20 131/76 (94) 96 Constitutional: NAD Neurologic: CN 2-12 intact Cardiovascular: RRR, no M/R/G Respiratory: CTA Gastrointestinal: other - some tenderness Airway Exam Mallampati Score: Class II MO: full Neck: flexible ROM: full Teeth: intact Dentures: no upper, no lower Anesthesia Pre-op A/P Labs Hematology Test 06/10/20 15:16 06/11/20 08:30 White Blood Count 22.9 K/UL (4.8-10.8) *H 13.4 K/UL (4.8-10.8) H Red Blood Count 6.42 M/UL (4.70-6.10) H 5.43 M/UL (4.70-6.10) Hemoglobin 16.6 G/DL (14.2-18.0) 16.0 G/DL (14.2-18.0) Hematocrit 55.0 % (42.0-52.0) H 46.2 % (42.0-52.0) Mean Corpuscular Volume 86 FL (80-99) 85 FL (80-99) Mean Corpuscular Hemoglobin 25.8 PG (27.0-31.0) L 29.4 PG (27.0-31.0) Mean Corpuscular Hemoglobin Concent 30.1 G/DL (32.0-36.0) L 34.5 G/DL (32.0-36.0) Red Cell Distribution Width 14.0 % (11.6-14.8) 12.7 % (11.6-14.8) Platelet Count 358 K/UL (150-450) 298 K/UL (150-450) Mean Platelet Volume 8.5 FL (6.5-10.1) 8.0 FL (6.5-10.1) Neutrophils (%) (Auto) % (45.0-75.0) 63.6 % (45.0-75.0) Lymphocytes (%) (Auto) % (20.0-45.0) 28.3 % (20.0-45.0) Monocytes (%) (Auto) % (1.0-10.0) 5.9 % (1.0-10.0) Eosinophils (%) (Auto) % (0.0-3.0) 1.4 % (0.0-3.0) Basophils (%) (Auto) % (0.0-2.0) 0.7 % (0.0-2.0) Differential Total Cells Counted 100 Neutrophils % (Manual) 91 % (45-75) H Lymphocytes % (Manual) 6 % (20-45) L Monocytes % (Manual) 3 % (1-10) Eosinophils % (Manual) 0 % (0-3) Basophils % (Manual) 0 % (0-2) Band Neutrophils 0 % (0-8) Platelet Estimate Adequate Platelet Morphology Normal Red Blood Cell Morphology Normal Chemistry Test 06/10/20 15:16 Sodium Level 141 MMOL/L (136-145) Potassium Level 4.6 MMOL/L (3.5-5.1) Chloride Level 104 MMOL/L (98-107) Carbon Dioxide Level 27 MMOL/L (21-32) Anion Gap 10 mmol/L (5-15) Blood Urea Nitrogen 15 mg/dL (7-18) Creatinine 0.9 MG/DL (0.55-1.30) Estimat Glomerular Filtration Rate > 60 mL/min (>60) Glucose Level 125 MG/DL (74-106) H Calcium Level 9.8 MG/DL (8.5-10.1) Total Bilirubin 1.4 MG/DL (0.2-1.0) H Direct Bilirubin 0.2 MG/DL (0.0-0.3) Aspartate Amino Transf (AST/SGOT) 56 U/L (15-37) H Alanine Aminotransferase (ALT/SGPT) 108 U/L (12-78) H Alkaline Phosphatase 82 U/L (46-116) Total Protein 8.5 G/DL (6.4-8.2) H Albumin 4.7 G/DL (3.4-5.0) Globulin 3.8 g/dL Albumin/Globulin Ratio 1.2 (1.0-2.7) Lipase 97 U/L (73-393) Risk Assessment & Plan Assessment: ASA 2 Plan: GA with ETT Status Change Before Surgery: No Pre-Antibiotics Drug: Ancef 2gr Given Within 1 Hr of Incision: Yes Time Given: 13:05 Vu Paz MD Jun 11, 2020 12:40
[2020-06-11] MEDS ORDERED: Sterile Water Irrig 1000ml IRRIG ONE ×2 (13:00)
[2020-06-11] MEDS ORDERED: LR 1000ml ONE (13:00)
[2020-06-11] MEDS ORDERED: NS Irrig 1000ml ONE (13:00)
[2020-06-11] MEDS ORDERED: Morphine Sulfate 10mg/ml Inj ONE (13:24)
[2020-06-11] MEDS ORDERED: Sodium Chloride 10ml vial INJ ONE (13:25)
[2020-06-11] MEDS ORDERED: Neostigmine 1mg/ml 10ml Inj ONE (13:25)
[2020-06-11] MEDS ORDERED: Glycopyrrolate 0.2mg/ml 1ml Vial ONE (13:25)
[2020-06-11] MEDS ORDERED: Ketorolac 30mg Inj ONE (13:27)
[2020-06-11] MEDS ORDERED: Metoclopramide 10mg/2ml Inj IVP PRN (13:30)
[2020-06-11] MEDS ORDERED: Midazolam 2mg/2ml Inj IVP PRN (13:30)
[2020-06-11] MEDS ORDERED: Hydromorphone 0.5mg/0.5ml inj IVP PRN (13:30)
[2020-06-11] MEDS ORDERED: LR 1000ml 1,000 ML IVLG SCH (13:30)
[2020-06-11] MEDS ORDERED: DiphenhydrAMINE 50mg/ml Inj IVP PRN (13:30)
[2020-06-11] MEDS ORDERED: Meperidine 25mg/1ml Inj (FOR RIGORS ONLY) IV PRN (13:30)
[2020-06-11] MEDS ORDERED: Ketorolac 30mg Inj IV PRN ×2 (13:30→14:00)
--- NOTE | 2020-06-11 13:57 | Brief Operative Note ---
Immediate Post Operative Note Operative Note Pre-op Diagnosis: Abdominal pain acute appendicitis Procedure: lap appy Post-op Diagnosis: same as pre-op Surgeon: emily Anesthesiologist: orlando Anesthesia: general, local Specimen: yes Complications: none Condition: stable Fluids: see Estimated Blood Loss: minimal Drains: none Implant(s) used?: No Diallo Zafar Jun 11, 2020 13:57
[2020-06-11] MEDS ORDERED: HYDROcodone/Acetamin 5/325 tab ORAL PRN (14:00)
[2020-06-11] MEDS ORDERED: Morphine Sulfate 2mg/ml Inj(IV/IM USE ONLY) IVP PRN ×2 (14:00)
[2020-06-11] MEDS ORDERED: Milk of Magnesia 30ml Ud ORAL PRN (14:00)
[2020-06-11] MEDS ORDERED: Sennosides 8.6mg tab ORAL PRN (14:00)
--- NOTE | 2020-06-11 14:06 | Immediate Post-Op Evaluation ---
Immediate Post-Op Evalulation Immediate Post-Op Evalulation Procedure: Laparoscopic appendectomy Date of Evaluation: Jun 11, 2020 Time of Evaluation: 14:04 IV Fluids: 800 Blood Products: none Estimated Blood Loss: min Urinary Output: none Blood Pressure Systolic: 115 Blood Pressure Diastolic: 66 Pulse Rate: 74 Respiratory Rate: 20 O2 Sat by Pulse Oximetry: 97 Temperature (Fahrenheit): 97.6 Pain Score (1-10): 1 Nausea: No Vomiting: No Complications none Patient Status: reacts, patent, extubated, none Hydration Status: adequate Vu Paz MD Jun 11, 2020 14:06
--- NOTE | 2020-06-11 15:07 | NUR ---
NURSE NOTES: Received patient from recovery,patient is awake and alert and oriented.IV fluid infusing.Laparoscopic sites x3 noted to abdomen,steri strip and dermabond,clean in place. Will monitor.
--- NOTE | 2020-06-11 15:59 | Operative Note - Dictated ---
DATE OF OPERATION: 06/11/2020 PREOPERATIVE DIAGNOSES: 1. Abdominal pain. 2. Acute appendicitis, early. POSTOPERATIVE DIAGNOSES: 1. Abdominal pain. 2. Acute appendicitis, early. OPERATION PERFORMED: 1. Diagnostic laparoscopy. 2. Laparoscopic appendectomy. ATTENDING SURGEON: Diallo Zafar MD. KELLER MACHINE OPERATOR: None. ANESTHESIOLOGY: Vu Paz MD. ANESTHESIA: General GETA plus local. ESTIMATED BLOOD LOSS: Minimal. IV FLUIDS: Please see anesthesia records. COMPLICATIONS: None. DRAINS: None. COUNTS: Sponge and needle counts correct x2. WOUND CLASSIFICATION: Class 3. SPECIMENS: Appendix. ANTIBIOTICS: The patient is on scheduled IV antibiotics. INDICATIONS FOR PROCEDURE: This is a 24-year-old male who presented to [facility] complaining of abdominal pain. The patient states generalized abdominal pain on the left side. Significant leukocytosis of 23,000. CT with equivocal potential acute appendicitis. Surgery called to evaluate. The patient was seen. The patient has atypical history and equivocal CT scan were evaluated compared to his clinical examination where he had focal peritonitis tenderness in the right lower quadrant with rebound and guarding. The remainder of the abdomen was uncomfortable with right lower quadrant was the area of focal pain. Peritoneal was identified. I had the patient stand and jump and he was directly identified to have pain in the right lower quadrant radiating to the rest of the abdomen. This led to likely appendicitis. Long discussion was had. Risks, benefits, and alternatives including potential of negative laparoscopy, appendectomy or other intraoperative finding require management. Risks, benefits, and alternatives discussed. The patient understood. I spoke with his family and they consented and scheduled for June 11, 2020. OPERATIVE NOTE: The patient was taken to the operating room and placed on the operating table in supine position with left arm tucked. All bony prominences well padded. SCDs placed. Preoperative time-out taken identifying the patient, procedure, operative staff, and surgical staff. General anesthesia was induced and the patient was intubated. The abdomen was clipped, prepped, and draped in standard surgical fashion. An infraumbilical incision was made and carried through subcutaneous tissue and the fascia was elevated and incised. Entry into the abdomen obtained using open Vijaya technique without complication. A 12 mm Vijaya trocar inserted and the abdomen insufflated to 12 to 15 mmHg. Laparoscope was inserted and the abdomen inspected. No injury from initial trocar placement identified. Right upper quadrant, liver, and gallbladder looked otherwise normal. Omentum in the right upper quadrant and left upper quadrant otherwise normal. Left lobe of the liver and stomach otherwise normal. Portions of small intestine and largest intestine could be identified were unremarkable. In the right lower quadrant, serous fluid was identified moving. Secondary trocars were placed under visualization beginning with a 12 mm left lower quadrant followed by 5 mm suprapubic. No injury from second trocar placement identified. Laparoscopic graspers were used. Cecum was identified. Tenia was followed down to the base where the appendix was noted. There was inflammation at the base of the appendix and at the appendix was early acute appendicitis likely. The appendix was mobilized. A window was made between the appendix and mesoappendix. A laparoscopic linear stapler was used and the appendix was divided at the base without complication. In similar fashion, laparoscopic linear stapler was used and the mesoappendix was divided. Bleeding noted from the mesoappendix and laparoscopic clips were used. Hemostasis obtained. Surgicel was left in the wound bed. Pelvic and right lower quadrant were irrigated and suctioned clean. No bleeding was identified, clipped, and staple lines satisfactory, viable and hemostatic. Appendix was placed in endoscopic retrieval bag and removed from the umbilical port site. At this time, we began the conclusion of our procedure. Secondary trocars were removed under direct visualization followed by the umbilical trocar site. Abdomen was desufflated. Umbilical trocar site and left lower quadrant port site fascia reapproximated using [id number] #0 Vicryl sutures. Skin incisions reapproximated with 4-0 Monocryl subcuticular interrupted sutures. Steri-Strips and Dermabond applied. The patient tolerated the procedure well, was extubated and taken to postanesthetic care unit in stable condition. Diallo Zafar M.D. DR: DEVAN JOB#: [id number] CC:
--- NOTE | 2020-06-11 16:14 | NUR ---
INSURANCE [employer]INICALS FAXED TO [employer] [phone]
[2020-06-11] MEDS: Docusate 100mg cap ORAL SCH (17:36)
[2020-06-11] MEDS: Morphine Sulfate 4mg/ml Inj (IV USE ONLY) IVP PRN ×2 (17:37→21:58)
--- NOTE | 2020-06-11 18:00 | NUR ---
NURSE NOTES: Patient able to rest after receiving pain medication and eating dinner.Lap sites x3 with steri strips remains intact,no bleeding noted .Call light within reach..
--- NOTE | 2020-06-11 19:20 | NUR ---
NURSE HAND-OFF: Diogo FRIAS Important Events on Shift:[surgery today for Laparoscopic Appendectomy. Patient Status: stable] Diet: [regular] Pending Orders: [] Pending Results/Labs:[] Pending MD notification:[] Latest Vital Signs: Temperature 97.7 , Pulse 85 , B/P 119 /56 , Respiratory Rate 18 , O2 SAT 94 , Nasal Cannula, O2 Flow Rate 3 . Vital Sign Comment: [] Latest [place] Fall Score: 20 Fall Risk: Low Risk Safety Measures: Call light Within Reach, Bed Alarm , Side Rails Side Rails x2, Bed position Low and Locked. Fall Precautions: Patient Fall Education Report given to [].
--- NOTE | 2020-06-11 19:45 | NUR ---
NURSE NOTES: Received report from Yoana FRIAS. Patient is awake, alert and oriented x4. On NC 2L, breathing is even and unlabored. Complains of abdominal pain. Steri strips on 3 abdominal sites intact and clean. IV right AC intact and patent with no bleeding noted. IVF discontinued per 's order. Bed low and locked. Call light within reach.
[2020-06-12] VITALS (7 sets, daily range): BP systolic 118–137; BP diastolic 70–86
[2020-06-12] MEDS: Morphine Sulfate 4mg/ml Inj (IV USE ONLY) IVP PRN ×2 (03:30→09:05)
[2020-06-12] MEDS: Piperacillin/Tazobactam 3.375 GM in NS 110 ML IVPB SCH ×3 (05:08→21:00)
[2020-06-12 06:28] LABS: BASOPHILS % (AUTO) 0.6 % (0.0-2.0); EOSINOPHILS % (AUTO) 1.2 % (0.0-3.0); HEMATOCRIT 46.3 % (42.0-52.0); HEMOGLOBIN 15.6 G/DL (14.2-18.0); MEAN CORPUSCULAR VOLUME 86 FL (80-99); MONOCYTES % (AUTO) 6.7 % (1.0-10.0); NEUTROPHILS % (AUTO) 70.5 % (45.0-75.0); PLATELET COUNT 290 K/UL (150-450); RED BLOOD COUNT 5.37 M/UL (4.70-6.10); RED CELL DISTRIBUTION WIDTH 12.5 % (11.6-14.8)
[2020-06-12 06:55] LABS: ANION GAP 9 mmol/L (5-15); BLOOD UREA NITROGEN 11 mg/dL (7-18); CALCIUM 9.2 MG/DL (8.5-10.1); CARBON DIOXIDE 28 MMOL/L (21-32); CHLORIDE 104 MMOL/L (98-107); CREATININE 0.9 MG/DL (0.55-1.30); POTASSIUM 3.8 MMOL/L (3.5-5.1); SODIUM 140 MMOL/L (136-145)
--- NOTE | 2020-06-12 07:51 | NUR ---
NURSE HAND-OFF: Important Events on Shift: Pain management Patient Status: Stable Diet: Regular Pending Orders: [] Pending Results/Labs:[] Pending MD notification:[] Latest Vital Signs: Temperature 98.6 , Pulse 77 , B/P 133 /86 , Respiratory Rate 18 , O2 SAT 98 , Nasal Cannula, O2 Flow Rate 3 . Vital Sign Comment: VS stable Latest [place] Fall Score: 20 Fall Risk: Low Risk Safety Measures: Call light Within Reach, Bed Alarm , Side Rails Side Rails x2, Bed position Low and Locked. Fall Precautions: Patient Fall Education Report given to Yoana FRIAS.
--- NOTE | 2020-06-12 08:06 | 48 Hour Post Anesthesia Eval ---
Post Anesthesia Evaluation Procedure: Laparoscopic appendectomy Date of Evaluation: Jun 12, 2020 Time of Evaluation: 08:05 Blood Pressure Systolic: 132 0: 76 Pulse Rate: 74 Respiratory Rate: 20 Temperature (Fahrenheit): 97.8 O2 Sat by Pulse Oximetry: 98 Airway: patent Nausea: No Vomiting: No Pain Intensity: 2 Hydration Status: adequate Cardiopulmonary Status: stable Mental Status/LOC: patient returned to baseline Follow-up Care/Observations: n/a Post-Anesthesia Complications: none Follow-up care needed: N/A Vu Paz MD Jun 12, 2020 08:06
--- NOTE | 2020-06-12 08:18 | NUR ---
NURSE NOTES: Patient awake and alert and oriented,respirations unlabored.Saline lock to the upper right arm in place.3 Lap sites to the abdomen with steri strips remains intact.Patient ate breakfast.Call light within reach.
--- NOTE | 2020-06-12 08:26 | General Progress Note ---
Subjective Allergies: Coded Allergies: No Known Allergies (Unverified , 12/24/19) Subjective care noted postop care noted Objective Last 24 Hour Vital Signs Date Time Temp Pulse Resp B/P (MAP) Pulse Ox O2 Delivery O2 Flow Rate FiO2 06/12/20 08:06 74 20 98 06/12/20 04:00 98.6 77 18 133/86 (102) 98 06/12/20 00:00 98.6 78 18 128/80 (96) 98 06/11/20 21:00 Room Air 06/11/20 20:00 98.9 74 18 130/83 (99) 98 06/11/20 16:00 97.7 85 18 119/56 (77) 94 06/11/20 14:55 98.5 76 20 121/75 96 Nasal Cannula 3 06/11/20 14:45 77 16 120/68 96 Nasal Cannula 3 06/11/20 14:30 76 22 119/80 97 Simple Mask 6 06/11/20 14:20 82 21 128/74 97 Simple Mask 6 06/11/20 14:10 74 20 123/67 97 Simple Mask 6 06/11/20 14:06 74 20 97 06/11/20 14:05 79 19 115/66 94 Simple Mask 6 06/11/20 14:01 97.6 78 24 123/75 93 Simple Mask 6 06/11/20 12:00 97.3 63 20 134/81 (98) 95 06/11/20 09:00 Room Air Intake and Output 06/11/20 06/12/20 19:00 07:00 Intake Total 1990 ml 590 ml Output Total 10 ml 1000 ml Balance 1980 ml -410 ml Intake Oral 240 ml 480 ml IV Total 1750 ml 110 ml Output Urine Total 1000 ml Estimated Blood Loss 10 ml # Voids 3 Laboratory Tests 06/11/20 08:30: White Blood Count 13.4H, Red Blood Count 5.43, Hemoglobin 16.0, Hematocrit 46.2, Mean Corpuscular Volume 85, Mean Corpuscular Hemoglobin 29.4, Mean Corpuscular Hemoglobin Concent 34.5, Red Cell Distribution Width 12.7, Platelet Count 298, Mean Platelet Volume 8.0, Neutrophils (%) (Auto) 63.6, Lymphocytes (%) (Auto) 28.3, Monocytes (%) (Auto) 5.9, Eosinophils (%) (Auto) 1.4, Basophils (%) (Auto) 0.7 06/12/20 05:05: White Blood Count 12.0H, Red Blood Count 5.37, Hemoglobin 15.6, Hematocrit 46.3, Mean Corpuscular Volume 86, Mean Corpuscular Hemoglobin 29.1, Mean Corpuscular Hemoglobin Concent 33.8, Red Cell Distribution Width 12.5, Platelet Count 290, Mean Platelet Volume 7.9, Neutrophils (%) (Auto) 70.5, Lymphocytes (%) (Auto) 21.0, Monocytes (%) (Auto) 6.7, Eosinophils (%) (Auto) 1.2, Basophils (%) (Auto) 0.6, Sodium Level 140, Potassium Level 3.8, Chloride Level 104, Carbon Dioxide Level 28, Anion Gap 9, Blood Urea Nitrogen 11, Creatinine 0.9, Estimat Glomerular Filtration Rate > 60, Glucose Level 104, Calcium Level 9.2 Height (Feet): 5 Height (Inches): 10.00 Weight (Pounds): 263 Objective WDWN NAD clear breath sounds bilaterally without rhonchi or wheeze [id number] without MRG NABS mildly tender no CCE nonfocal Assessment/Plan Assessment/Plan: IMPRESSION: early appendicitis , elevated liver enzymes, leukocytosis, s/p appy PLAN postop care dc planning per surgery pain control stable out of bed impression, plan, and exam edited and reviewed in detail care discussed with Redd Garcia MD Jun 12, 2020 08:26
--- NOTE | 2020-06-12 08:55 | NUR ---
PT EVALUATION NOTE Patient seen for initial evaluation and treatment initiated. Patient presents with pain and impaired functional mobility post-op. Patient requires SBA for bed mobility and SBA/CGA for transfers, no AD. Patient able to ambulate 125 ft with CGA, multiple standing rests, slow gait and guarded. Patient will benefit from skilled inpatient PT intervention to improve level of functional mobility and activity tolerance. Anticipate discharge home with family assistance once medically cleared by MD. No DME needs identified at this time. Addendum: 06/12/20 at 1239 by GRISELDA FRANCIS PT Amended: Links added.
[2020-06-12] MEDS: Docusate 100mg cap ORAL SCH ×2 (09:04→17:57)
--- NOTE | 2020-06-12 10:07 | Surgery Progress Note ---
Surgery Progress Note Subjective Procedure Performed lap appy Additional Comments doing well post op labs better exam better wounds c/d/i rx written f/u given d/c planning Objective Last 24 Hour Vital Signs Date Time Temp Pulse Resp B/P (MAP) Pulse Ox O2 Delivery O2 Flow Rate FiO2 06/12/20 09:15 Room Air 06/12/20 08:06 74 20 98 06/12/20 08:00 98.1 73 18 134/82 (99) 94 06/12/20 04:00 98.6 77 18 133/86 (102) 98 06/12/20 00:00 98.6 78 18 128/80 (96) 98 06/11/20 21:00 Room Air 06/11/20 20:00 98.9 74 18 130/83 (99) 98 06/11/20 16:00 97.7 85 18 119/56 (77) 94 06/11/20 14:55 98.5 76 20 121/75 96 Nasal Cannula 3 06/11/20 14:45 77 16 120/68 96 Nasal Cannula 3 06/11/20 14:30 76 22 119/80 97 Simple Mask 6 06/11/20 14:20 82 21 128/74 97 Simple Mask 6 06/11/20 14:10 74 20 123/67 97 Simple Mask 6 06/11/20 14:06 74 20 97 06/11/20 14:05 79 19 115/66 94 Simple Mask 6 06/11/20 14:01 97.6 78 24 123/75 93 Simple Mask 6 06/11/20 12:00 97.3 63 20 134/81 (98) 95 I&O Intake and Output 06/11/20 06/12/20 19:00 07:00 Intake Total 1990 ml 590 ml Output Total 10 ml 1000 ml Balance 1980 ml -410 ml Intake Oral 240 ml 480 ml IV Total 1750 ml 110 ml Output Urine Total 1000 ml Estimated Blood Loss 10 ml # Voids 3 Laboratory Tests Test 06/12/20 05:05 White Blood Count 12.0 K/UL (4.8-10.8) H Red Blood Count 5.37 M/UL (4.70-6.10) Hemoglobin 15.6 G/DL (14.2-18.0) Hematocrit 46.3 % (42.0-52.0) Mean Corpuscular Volume 86 FL (80-99) Mean Corpuscular Hemoglobin 29.1 PG (27.0-31.0) Mean Corpuscular Hemoglobin Concent 33.8 G/DL (32.0-36.0) Red Cell Distribution Width 12.5 % (11.6-14.8) Platelet Count 290 K/UL (150-450) Mean Platelet Volume 7.9 FL (6.5-10.1) Neutrophils (%) (Auto) 70.5 % (45.0-75.0) Lymphocytes (%) (Auto) 21.0 % (20.0-45.0) Monocytes (%) (Auto) 6.7 % (1.0-10.0) Eosinophils (%) (Auto) 1.2 % (0.0-3.0) Basophils (%) (Auto) 0.6 % (0.0-2.0) Sodium Level 140 MMOL/L (136-145) Potassium Level 3.8 MMOL/L (3.5-5.1) Chloride Level 104 MMOL/L (98-107) Carbon Dioxide Level 28 MMOL/L (21-32) Anion Gap 9 mmol/L (5-15) Blood Urea Nitrogen 11 mg/dL (7-18) Creatinine 0.9 MG/DL (0.55-1.30) Estimat Glomerular Filtration Rate > 60 mL/min (>60) Glucose Level 104 MG/DL (74-106) Calcium Level 9.2 MG/DL (8.5-10.1) Plan Problems: (1) Appendicitis Assessment & Plan: This is a 24-year-old male with likely acute appendicitis. Though patient's clinical presentation history questionable appendicitis or with atypical presentation on examination he does have focal tenderness in the right lower quadrant only discomfort in the remainder the abdomen. He has rebound and guarding the right lower quadrant. He is more peritonitis gone to the right lower quadrant is when he is I stand up and jump he points directly the right lower quadrant is where the pain radiates from. CT reviewed dilated appendix noted notes severe inflammation agree with likely equivocal but given clinical examination though history is not consistent likely atypical presentation of acute appendicitis. I do long discussion with the patient at the bedside. I explained to him the possibility of a negative laparoscopy, laparoscopic appendectomy, medical treatment with repeat abdominal examinations and antibiotics. After explained the risk benefits and alternatives patient expressed that he would be more comfortable with proceeding with diagnostic laparoscopy and appendectomy and more of a definitive answer as to the etiology of his pain. Consent obtained. Plan for OR today. (2) Shoulder injury (3) Abdominal pain (4) Pharyngitis (5) Hematoma (6) Elevated white blood cell count Diallo Zafar Jun 12, 2020 10:07
--- NOTE | 2020-06-12 14:04 | NUR ---
[employer] FAXED TO [facility] [phone] [facility] [phone]
[2020-06-12] MEDS: HYDROcodone/Acetamin 10/325 tab ORAL PRN ×2 (14:50→20:59)
--- NOTE | 2020-06-12 18:00 | NUR ---
NURSE NOTES: Patient tolerating diet. Laparoscopic sited with steri strips remains in place ,no redness or drainage noted.Call light within reach.
--- NOTE | 2020-06-12 19:15 | NUR ---
NURSE HAND-OFF: Diogo FRIAS Important Events on Shift:[patient took shower today. Patient on PO pain medication. Patient Status: [within normal limit] Diet: [Regular] Pending Orders: [] Pending Results/Labs:[] Pending MD notification:[] Latest Vital Signs: Temperature 98.3 , Pulse 73 , B/P 128 /83 , Respiratory Rate 18 , O2 SAT 95 , Nasal Cannula, O2 Flow Rate 3 . Vital Sign Comment: [] Latest [place] Fall Score: 20 Fall Risk: Low Risk Safety Measures: Call light Within Reach, Bed Alarm , Side Rails Side Rails x2, Bed position Low and Locked. Fall Precautions: Patient Fall Education Report given to [].
--- NOTE | 2020-06-12 19:46 | NUR ---
NURSE NOTES: Received report from Yoana FRIAS. Patient is awake, alert and oriented x4. On room air, breathing is even and unlabored. Complains of abdominal pain 6/10. Dressings on abdomen clean and intact with no drainage noted. IV right AC intact and patent with no bleeding noted. Bed low and locked. Call light within reach.
[2020-06-13] MEDS: HYDROcodone/Acetamin 10/325 tab ORAL PRN ×2 (02:06→07:53)
[2020-06-13 04:00] VITALS: BP 127/75
[2020-06-13] MEDS: Piperacillin/Tazobactam 3.375 GM in NS 110 ML IVPB SCH (05:28)
--- NOTE | 2020-06-13 07:36 | NUR ---
NURSE HAND-OFF: Important Events on Shift: Lolis Garcia/Chelsie planning Patient Status: Stable Diet: Regular Pending Orders: [] Pending Results/Labs:[] Pending MD notification:[] Latest Vital Signs: Temperature 98.1 , Pulse 73 , B/P 127 /75 , Respiratory Rate 17 , O2 SAT 94 , Nasal Cannula, O2 Flow Rate 3 . Vital Sign Comment: VS stable Latest [place] Fall Score: 20 Fall Risk: Low Risk Safety Measures: Call light Within Reach, Bed Alarm , Side Rails Side Rails x2, Bed position Low and Locked. Fall Precautions: Patient Fall Education Report given to Salvatore FRIAS.
--- NOTE | 2020-06-13 07:45 | NUR ---
NURSE NOTES: Pt lying in bed w/bed in lowest position and call light within reach. Pt A&Ox4, VSS, and in no apparent distress. IV site intact/asymptomatic w/Zosyn infusing; and steri-strips x 3 C/D/I. Pt scheduled to be D/C'd this morning. Will continue to monitor.
[2020-06-13] MEDS: Docusate 100mg cap ORAL SCH (07:53)
[2020-06-13 08:00] VITALS: BP 138/80
--- NOTE | 2020-06-13 09:19 | General Progress Note ---
Subjective Allergies: Coded Allergies: No Known Allergies (Unverified , 12/24/19) Subjective care noted postop care noted Objective Last 24 Hour Vital Signs Date Time Temp Pulse Resp B/P (MAP) Pulse Ox O2 Delivery O2 Flow Rate FiO2 06/13/20 08:00 98.4 76 18 138/80 (99) 97 06/13/20 04:00 98.1 73 17 127/75 (92) 94 06/12/20 23:41 98.2 67 16 125/79 (94) 94 06/12/20 21:00 Room Air 06/12/20 20:00 98.7 81 16 137/77 (97) 93 06/12/20 16:00 97.9 72 18 118/70 (86) 94 06/12/20 12:00 98.3 73 18 128/83 (98) 95 Intake and Output 06/12/20 06/13/20 19:00 07:00 Intake Total 720 ml 590.0 ml Output Total 2250 ml Balance -1530 ml 590.0 ml Intake Oral 720 ml 480 ml IV Total 110.0 ml Output Urine Total 2250 ml # Voids 3 Height (Feet): 5 Height (Inches): 10.00 Weight (Pounds): 263 Objective WDWN NAD clear breath sounds bilaterally without rhonchi or wheeze [id number] without MRG NABS mildly tender no CCE nonfocal Assessment/Plan Assessment/Plan: IMPRESSION: early appendicitis , elevated liver enzymes, leukocytosis, s/p appy PLAN postop care dc planning per surgery pain control stable out of bed advance diet impression, plan, and exam edited and reviewed in detail care discussed with RODRIGUEZ. Redd Ledezma MD Jun 13, 2020 09:19
[2020-06-13] MEDS ORDERED: Flu Vaccine Quadrivalent IM ONE (10:50)
--- NOTE | 2020-06-13 11:21 | NUR ---
NURSE NOTES: Pt D/C'd home in stable condition and w/all belongings accounted for. Provided pt w/[place] rx; D/C summary; flu vaccine given; and ID wristband and IV removed prior to D/C.
--- NOTE | 2020-06-13 11:32 | NUR ---
[employer] FAXED TO [facility] [phone] [id number] [phone]
--- NOTE | 2020-06-16 11:05 | Discharge Summary ---
Discharge Summary Discharge Summary _ Date of admission: 06/10/2020 Date of discharge: 06/13/[address] Ledezma History of Present Illness and Brief Hospital Course Mr. Pino is a 24-year-old male with no significant past medical history other than gastritis who presented to ER for evaluation of sudden onset left upper qu adrant abdominal pain with flatulence and constipation x1 day. Abdomen/pelvis CT showed findings consistent with possible early appendicitis. Patient was admitted to the hospital for further management. Patient was stable at time of admission. After long discussion with the patient, patient elected to undergo diagnostic laparoscopy and laparoscopic appendectomy. Patient tolerated the procedure well and was transferred to postanesthetic care unit in stable condition. The details of the procedure can be found in the operative note by Dr. Zafar. Patient was monitored after the procedure and was found to be medically stable for discharge and was discharged home on 06/13/2020. Consultants: Surgery Dr. Zafar Discharge Condition Improved and stable Discharge Activity As tolerated Discharge Diet Regular Final diagnoses Acute appendicitis, s/p laparoscopic appendectomy Leukocytosis I have been assigned to dictate discharge summary for this account. I was not involved in the patient's management Dejan Quinonez Jun 16, 2020 11:05
== END 2020-06-13 11:20 | disposition home or self-care (01) | DRG 234 ==
LOC: EMR 15:31 → 4E 19:20 → EDBEDREQ 21:05
PROC: 0DTJ4ZZ Resection of Appendix, Percutaneous Endoscopic Approach (ICD-10-PCS; principal; 2020-06-11 12:30)
DX: K35.80 Unspecified acute appendicitis (principal); R74.8 Abnormal levels of other serum enzymes
CPT/HCPCS: 36415; 74177; 80048; 80053; 80307; 81003; 82248; 83690; 85007; 85025; 90689; 94003; 94150; 96361; 96365; 96375; 99285; J2180; J2250; J2405; J2710; J7030